=== PATIENT | female | born 1995 | race African-American/Black ===

== ENCOUNTER 2018-03-12 11:26 | Emergency (ER) | payer MEDICAID ==
[~2018-03-12] VITALS: Ht 160 cm; Wt 75.7 kg
[2018-03-12 11:26] VITALS: BP 118/71
== END 2018-03-12 13:44 | disposition home or self-care (01) ==
LOC: ER 11:27
DX: J02.0 Streptococcal pharyngitis (principal); F17.200 Nicotine dependence, unspecified, uncomplicated
CPT/HCPCS: 87880; 99283; 99406; A4606; Z7610; 86403-TC